=== PATIENT | female | born 1950 ===

== ENCOUNTER 2019-10-13 08:43 | Day surgery (SDC) | payer MEDICARE, OTHER ==
[~2019-10-13] VITALS: Ht 175.3 cm; Wt 73.8 kg
[2019-10-13] MEDS ORDERED: EUTHYROX50 MCG (10:01)
[2019-10-13] MEDS ORDERED: LIOT25 PO (10:02)
[2019-10-13] MEDS ORDERED: PROG100 PO (10:03)
[2019-10-13] MEDS ORDERED: CLIMARA1 EACH PO (10:04)
[2019-10-13] MEDS ORDERED: BUPR150ER PO (10:05)
[2019-10-13] MEDS ORDERED: Ativan1 MG PO (10:05)
--- NOTE | 2019-10-13 10:23 | NUR ---
10/13/19 1023 Cintia Hinton History, Chart, Medications and Allergies reviewed before start of procedure. Patient confirms NPO status and agrees with scheduled surgery. PATIENT DETERMINED TO BE ASA APPROPRIATE FOR PROPOFOL SEDATION PRIOR TO START OF PROCEDURE BY DR. THORNTON. 3-LEAD EKG REVIEWED WITH PHYSICIAN PRIOR TO START OF PROCEDURE. MONITOR INTACT WITH CONTINUOUS PULSE OXIMETRY AND INTERMITTENT BP.
--- NOTE | 2019-10-13 11:46 | NUR ---
Discharge instructions reviewed with patient. Patient verbalizes understanding. Copy given to patient to take home. Patient up to Ambulate independently. Gait steady. 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 Discharged via wheelchair to private car for ride home WITH SPOUSE
== END 2019-10-13 22:44 | disposition home or self-care (01) ==
LOC: ORSCMMR 08:43 → ORD 10:00 → ORSCMMR 10:00
PROVIDERS: Internal Medicine Gastroenterology
PROC: 0DJD8ZZ Inspection of Lower Intestinal Tract, Via Natural or Artificial Opening Endoscopic (ICD-10-PCS; principal; 2019-10-13 10:00)
DX: Z12.11 Encounter for screening for malignant neoplasm of colon (principal); E03.9 Hypothyroidism, unspecified; I49.3 Ventricular premature depolarization; F41.9 Anxiety disorder, unspecified; Z79.899 Other long term (current) drug therapy
CPT/HCPCS: J2704; J7120